=== PATIENT | female | born 1955 | race Caucasian/White ===

== ENCOUNTER → 2017-05-25 | Outpatient (CLI) | payer OTHER ==
[2017-05-25 11:47] LABS: ALBUMIN 3.7 GM/DL (3.2-5.2); ALBUMIN/GLOBULIN RATIO 1.03 (1.00-1.93); ALKALINE PHOSPHATASE 120 U/L (45-117); ALT/SGPT 28 U/L (12-78); ANION GAP 4 MEQ/L (8-16); AST/SGOT 21 U/L (15-37); BILIRUBIN,TOTAL 0.3 MG/DL (0.2-1.0); BLOOD UREA NITROGEN 20 MG/DL (7-18); CARBON DIOXIDE LEVEL 28 MEQ/L (21-32); CHLORIDE LEVEL 113 MEQ/L (98-107); CREATININE FOR GFR 0.68 MG/DL (0.55-1.02); GLOMERULAR FILTRATION RATE > 60.0 (>45); GLUCOSE, FASTING 92 MG/DL (80-110); POTASSIUM SERUM 4.3 MEQ/L (3.5-5.1); SODIUM LEVEL 145 MEQ/L (136-145); TOTAL PROTEIN 7.3 GM/DL (6.4-8.2)
--- NOTE | 2017-05-26 01:21 | REP ---
Clinical: Follow-up thyroid nodule. Comparison: 05/29/2016. Technique: Real time demarco scale and color evaluation using linear high frequency transducer. Findings: Right thyroid lobe measures 4.8 x 2.0 x 2.1 cm with stable nodule in the mid to lower pole measuring 15 x 11 x 11 mm (previously measuring 13 x 12 x 12 mm). A new smaller nonspecific nodule in the mid pole measures 3 x 3 x 2 mm and a new mid pole cyst measures 2 x 2 x 2 mm. Left lobe measures 4.7 x 1.2 x 1.1 mm with a lower pole nodule measuring 7 x 6 x 5 mm (previously measuring 12 x 8 x 8 mm). Second lower pole nodule on prior examination not visualized on current examination. Impression: Few bilateral nodules as described above are nonspecific. Signed by Jagdish Head MD 05/26/2017 01:13 A
== END ==
LOC: M RAD 09:02
PROVIDERS: ATTEND Internal Medicine Endocrinology, Diabetes & Metabolism
DX: M81.0 Age-related osteoporosis without current pathological fracture (principal); Z78.0 Asymptomatic menopausal state

== ENCOUNTER → 2017-09-08 | Outpatient (CLI) | payer OTHER ==
--- NOTE | 2017-09-08 17:27 | REP ---
STERNUM: Two views of the sternum are performed. There is no evidence of acute fracture, dislocation or instrinsic bone disease. IMPRESSION: No evidence of acute fracture or dislocation. Signed by Chuy Frias MD 09/09/2017 04:39 P
--- NOTE | 2017-09-08 17:37 | REP ---
Bilateral rib series: Nine views including PA chest. History: Evaluate fracture. Sternal injury with pain. Findings: PA chest radiograph shows no evidence of pneumothorax or hydrothorax. Mediastinum is not widened. Heart is not enlarged. The lung loco are clear. Multiple views of the right and left ribs are presented. These show no evidence of rib fracture or bony destructive lesion. There is a small benign enchondroma in the right humeral head, which is unchanged from [address] study. Impression: Bilateral rib views show no evidence of rib fracture or bony destructive lesion. Signed by Ky Anderson MD 09/08/2017 05:49 P
== END ==
LOC: M WUC 15:30
PROVIDERS: ATTEND Nurse Practitioner Family
DX: R07.81 Pleurodynia (principal)

== ENCOUNTER → 2018-03-15 | Outpatient (REF) | payer OTHER | LOC: M SFHCCAPE 13:58 | DX: J02.9 Acute pharyngitis, unspecified (principal) ==

== ENCOUNTER → 2018-06-10 | Outpatient (CLI) | payer OTHER ==
[2018-06-10 10:25] LABS: ALBUMIN 3.8 GM/DL (3.2-5.2); ALKALINE PHOSPHATASE 136 U/L (45-117); ALT/SGPT 42 U/L (12-78); ANION GAP 5 MEQ/L (8-16); AST/SGOT 29 U/L (7-37); BILIRUBIN,TOTAL 0.3 MG/DL (0.2-1.0); BLOOD UREA NITROGEN 24 MG/DL (7-18); CALCIUM LEVEL 9.9 MG/DL (8.8-10.2); CARBON DIOXIDE LEVEL 30 MEQ/L (21-32); CHLORIDE LEVEL 109 MEQ/L (98-107); CREATININE FOR GFR 0.96 MG/DL (0.55-1.30); GLOMERULAR FILTRATION RATE > 60.0 (>45); GLUCOSE, FASTING 105 MG/DL (70-100); POTASSIUM SERUM 4.7 MEQ/L (3.5-5.1); SODIUM LEVEL 144 MEQ/L (136-145); TOTAL PROTEIN 7.6 GM/DL (6.4-8.2)
[2018-06-10 11:27] LABS: PTH INTACT 91.2 PG/ML (18.5-88.0)
[2018-06-10 12:38] LABS: TOTAL 25(OH) VITAMIN D 25.5 NG/ML (30.0-100.0)
== END ==
LOC: M RAD 09:14
DX: E04.1 Nontoxic single thyroid nodule (principal); E21.3 Hyperparathyroidism, unspecified
CPT/HCPCS: 76536

== ENCOUNTER 2019-02-16 08:42 | Day surgery (SDC) | payer MEDICARE, OTHER ==
[~2019-02-16] VITALS: Ht 170.2 cm; Wt 82.6 kg
[~2019-02-16 08:42] MED LIST: ASPI81TA26 PO; CALC600T31 PO; FEXO180T58 PO; IBUP200C25 PO; MULT1TAB10 PO; OCUVTAB4 PO; OMEP40CA2 PO; OYST500T12 PO; VITA200015 PO; VITA400C7 PO; VITA500C24 PO
[2019-02-16] MEDS: NS 1,000 ML IV ONE (09:25)
[2019-02-16] MEDS ORDERED: fentaNYL 100 MCG/2 ML INJECTION (J3010) As Ordered ONE (09:58)
[2019-02-16] MEDS ORDERED: PROPOFOL 200 MG/20 ML VIAL As Ordered ONE ×2 (10:01→10:04)
[2019-02-16] MEDS ORDERED: LIDOCAINE 2% INJ 100 MG/5 ML SDV (FOR ANES.) As Ordered ONE (10:01)
--- NOTE | 2019-02-16 10:13 | ROOR ---
Patient Name: Chinyere Giordano Procedure Date: 02/16/2019 9:48 AM Date of : 1955 Age: 63 Room: [facility] Gender: Female Note Status: Finalized Procedure: Upper Endoscopy + Biopsies + Balloon Dilatation. Indications: Dysphagia Providers: Deshaun Campbell MD Referring MD: KADY SERVIN JR, MD Requesting Provider: Medicines: Monitored Anesthesia Care Complications: No immediate complications. Procedure: Pre-Anesthesia Assessment: - The heart rate, respiratory rate, oxygen saturations, blood pressure, adequacy of pulmonary ventilation, and response to care were monitored throughout the procedure. The Endoscope was introduced through the mouth, and advanced to the second part of duodenum. The upper GI endoscopy was accomplished without difficulty. The patient tolerated the procedure well. Findings: The Z-line was regular and was found 40 cm from the incisors. A small hiatal hernia was present. A non-obstructing Schatzki ring was found at the gastroesophageal junction. A TTS dilator was passed through the scope. Dilation with an 18-19-20 mm balloon dilator was performed to 20 mm. The dilation site was examined and showed no change. Localized mild inflammation characterized by congestion (edema) and erosions was found in the gastric antrum. Biopsies were taken with a cold forceps for Helicobacter pylori testing. The exam of the duodenum was otherwise normal. Impression: - Z-line regular, 40 cm from the incisors. - Small hiatal hernia. - Non-obstructing Schatzki ring. Dilated. - Mucosal changes suspicious for gastritis. Biopsied. - The examination was otherwise normal. Recommendation: - Patient has a contact number available for emergencies. The signs and symptoms of potential delayed complications were discussed with the patient. Return to normal activities tomorrow. Written discharge instructions were provided to the patient. - High fiber diet. - Discharge patient to home. - Follow an antireflux regimen. - Continue present medications. - Await pathology results. - Telephone GI clinic for pathology results in 1 week. - Return to referring physician. - The findings and recommendations were discussed with the patient's family. Deshaun Campbell MD Deshaun Campbell MD 02/16/2019 10:12:39 AM Electronically signed by Deshaun Campbell MD Number of Addenda: 0 Note Initiated On: 02/16/2019 9:48 AM Estimated Blood Loss: Estimated blood loss: none.
[2019-02-16 10:40] VITALS: BP 137/83
== END 2019-02-16 10:53 | disposition home or self-care (01) ==
LOC: M OPP 08:42
PROVIDERS: ATTEND Internal Medicine Gastroenterology
DX: K22.2 Esophageal obstruction (principal); K44.9 Diaphragmatic hernia without obstruction or gangrene; K29.60 Other gastritis without bleeding; R13.10 Dysphagia, unspecified
CPT/HCPCS: 43239; 43249; 88305; J3010

== ENCOUNTER → 2019-09-13 | Outpatient (CLI) | payer MEDICARE, OTHER ==
[~2019-09-13] MED LIST changes: -OMEP40CA2 PO; +OMEP40CA97 PO
--- NOTE | 2019-09-14 11:13 | REP ---
COOKIE SWALLOW The procedure was performed under the direct supervision of Dr. Frias. The procedure was performed with Yoli Alvarado from speech pathology present. 5 ml aliquots of thin, pudding and mixed fruit consistency barium was administered. There is no evidence of penetration or aspiration. The patient does, however, have a Zenker's diverticulum. The detailed report of this examination will be provided by speech pathology. 0.4 minutes of fluoroscopy time was utilized for this procedure. Electronically Signed by NELLIE Mckeon 09/13/2019 05:23 P Electronically Signed by Chuy Frias MD 09/14/2019 11:04 A
== END ==
LOC: M ST 14:07
PROVIDERS: ATTEND Internal Medicine Gastroenterology
DX: R13.12 Dysphagia, oropharyngeal phase (principal); K22.5 Diverticulum of esophagus, acquired

== ENCOUNTER → 2019-12-12 | Outpatient (REF) | payer MEDICARE, OTHER ==
[2019-12-12 12:26] LABS: BLOOD UREA NITROGEN 21 MG/DL (7-18); CREATININE FOR GFR 0.82 MG/DL (0.55-1.30); GLOMERULAR FILTRATION RATE > 60.0 (>45)
== END ==
LOC: M LABDRAW1 10:27
PROVIDERS: ATTEND Otolaryngology
DX: R13.10 Dysphagia, unspecified (principal)

== ENCOUNTER → 2019-12-15 | Outpatient (CLI) | payer MEDICARE, OTHER ==
[~2019-12-15] MED LIST changes: +E-Z-GAS II EFFERVESCENT PACKET (SODIUM BICARB./CITRIC ACID/SIMETHICONE) As Ordered ONE; +E-Z-HD 98% w/w 340GM SUSP BTL As Ordered ONE; +E-Z-PAQUE 96% w/w SUSP 176GM BTL As Ordered ONE; +ISOVUE-370 76% 100ML VIAL (Q9967) As Ordered ONE
--- NOTE | 2019-12-15 13:21 | REP ---
Examination Requested: Esophagram Barium Swallow Reason For Exam/Comment: Dysphasia Esophagram: The procedure was performed NELLIE López, under the direct supervision of Dr. Tyler. The images were reviewed with Dr. Tyler. A single PA chest x-ray is submitted as a teamcenter consultant film. The superior mediastinal structures are midline. The heart size is within normal limits. The lungs are clear. Liquid barium and gas producing granules were given in the erect position as well as liquid barium in the prone oblique position, in order to perform a double contrast esophagram examination. Oral and pharyngeal stages of the examination were unremarkable. There is a Zenker's diverticulum noted descending posteriorly and slightly to the right measuring approximately a 1.0 x 1.5 cm. Esophageal transport is efficient and there is no esophagitis, stricture, or mucosal ring noted. There is a small hiatal hernia noted. Gastroesophageal reflux was visualized to the level of the tc. Impression: 1. Zenker's diverticulum descending posteriorly and slightly to the right and measuring approximately 1.0 x 1.5 cm. 2. Small hiatal hernia. 3. Gastroesophageal reflux to the level of the tc. 0.4 minutes of fluoroscopy time was utilized for this procedure. Some fluoroscopic images are performed with last image hold technology. These images require no additional radiation. Reviewed by NELLIE Castro 12/15/2019 12:14 P Electronically Signed by Chuy Tyler MD 12/15/2019 01:13 P
--- NOTE | 2019-12-16 08:40 | REPVR ---
PROCEDURE INFORMATION: Exam: CT Neck With Contrast Exam date and time: 12/15/2019 9:45 AM Age: 64 years old Clinical indication: Throat pain; Additional info: Dysphagiaxr1, ct2 TECHNIQUE: Imaging protocol: Computed tomography images of the neck with intravenous contrast. Radiation optimization: All CT scans at this facility use at least one of these dose optimization techniques: automated exposure control; mA and/or kV adjustment per patient size (includes targeted exams where dose is matched to clinical indication); or iterative reconstruction. Contrast material: ISOVUE 370; Contrast volume: 75 ml; Contrast route: IV; COMPARISON: Thyroid, ST head+neck US 06/06/2019 9:39 AM FINDINGS: Sinuses: Mild mucosal thickening in the maxillary sinuses. Visualized paranasal sinuses are well aerated otherwise. Nasopharynx: Unremarkable. Oropharynx: Unremarkable. No significant tonsillar enlargement. No abscess. Hypopharynx: Unremarkable Larynx: Unremarkable. Normal epiglottis. Retropharyngeal space: Unremarkable. Submandibular/Parotid glands: Normal. Glands are normal in size. Thyroid: Exophytic heterogeneous nodule off the lower pole of the left thyroid lobe measuring 1.6 cm. Lymph nodes: Unremarkable. No lymphadenopathy. Trachea: Visualized trachea is unremarkable. Lungs: Unremarkable as visualized. Mastoid air cells: Effusion in the mastoid air cells bilaterally. No mastoid coalescence. Bones/joints: Mild degenerative spine. No acute fracture. Soft tissues: Unremarkable. No significant soft tissue swelling. No abscess. IMPRESSION: 1. No CT findings to suggest source of dysphagia. 2. Exophytic nodule off the lower pole of the left thyroid. Recommend routine follow-up thyroid ultrasound. 3. Mild maxillary sinus disease. 4. Incidental mastoiditis. COMMENT: Consistent with the [employer]'s Incidental Findings Committee white paper (J Am Estrada Radiol 2015): In patients aged 35 years and older with an incidental thyroid nodule equal to or greater than 1.[address], MRI or extrathyroidal US, further evaluation with dedicated thyroid US is recommended for patients with normal life expectancy and without comorbidities. For smaller nodules without suspicious features, no further evaluation or follow up is recommended. Electronically signed by: Jean-Paul Cherry On 12/16/2019 08:39:43 AM
== END ==
LOC: M RAD 09:23
PROVIDERS: ATTEND Otolaryngology
DX: R13.10 Dysphagia, unspecified (principal); K44.9 Diaphragmatic hernia without obstruction or gangrene; K22.5 Diverticulum of esophagus, acquired; K21.9 Gastro-esophageal reflux disease without esophagitis
CPT/HCPCS: 70491; 74220; Q9967

== ENCOUNTER → 2020-04-23 | Outpatient (CLI) | payer MEDICARE, OTHER ==
[~2020-04-23] MED LIST changes: -E-Z-GAS II EFFERVESCENT PACKET (SODIUM BICARB./CITRIC ACID/SIMETHICONE) As Ordered ONE; -E-Z-HD 98% w/w 340GM SUSP BTL As Ordered ONE; -E-Z-PAQUE 96% w/w SUSP 176GM BTL As Ordered ONE; -ISOVUE-370 76% 100ML VIAL (Q9967) As Ordered ONE
[2020-04-23 11:14] LABS: PLATELET COUNT, AUTOMATED 200 10^3/uL (150-450)
[2020-04-23 11:21] LABS: INR 0.99; PROTHROMBIN TIME 12.8 SECONDS (11.8-14.0)
[2020-04-23 11:22] LABS: PARTIAL THROMBOPLASTIN TIME 31.1 SECONDS (25.0-38.4)
[2020-04-23 11:29] LABS: BLOOD UREA NITROGEN 30 MG/DL (7-18); C REACTIVE PROTEIN QUANTITATIV < 0.30 MG/DL (0.00-0.30); CREATININE FOR GFR 0.71 MG/DL (0.55-1.30); GLOMERULAR FILTRATION RATE > 60.0 (>45)
[2020-04-23 11:33] LABS: ERYTHROCYTE SEDIMENTATION RATE 1 mm/hr (0-30)
== END ==
LOC: M LAB 10:27
PROVIDERS: ATTEND Physical Medicine & Rehabilitation
DX: Z01.812 Encounter for preprocedural laboratory examination (principal); M51.37 Other intervertebral disc degeneration, lumbosacral region

== ENCOUNTER → 2020-05-01 | Outpatient (CLI) | payer MEDICARE, OTHER | LOC: M LABSMTC 12:27 | PROVIDERS: ATTEND Physical Medicine & Rehabilitation | DX: Z03.818 Encounter for observation for suspected exposure to other biological agents ruled out (principal); Z11.59 Encounter for screening for other viral diseases ==

== ENCOUNTER → 2021-06-14 | Outpatient (CLI) | payer MEDICARE, OTHER ==
[~2021-06-14] MED LIST changes: +OMEP40CA4 PO; -OMEP40CA97 PO
--- NOTE | 2021-06-14 10:25 | REP ---
INDICATION: THYROID NODULE. COMPARISON: Multiple TECHNIQUE: Bilateral thyroid ultrasound as on the prior exam FINDINGS: Right lobe of the thyroid gland measures 4.1 x 1.8 x 1.3 cm and the left lobe measures 3.7 x 1.2 x 1.2 cm. The isthmus measures 3.6 mm. In the inferior pole the right lobe there is a 1.4 x 1.1 x 1.9 cm sized complex nodule with some echogenic foci consistent with calcific deposition. This previously measured 1.5 x 1.1 x 1 cm and is essentially unchanged. The 3 mm size cyst seen previously in the upper lobe region is unchanged. The 7 mm sized solid nodule seen previously in the inferior aspect of the left lobe today measures 1.1 cm. IMPRESSION: Nodules as described above. <Electronically signed by Miki Ramos > 06/14/21 [id number]
[2021-06-14 10:38] LABS: HEMOGLOBIN A1c 5.7 %
[2021-06-14 10:45] LABS: ALBUMIN 3.8 GM/DL (3.2-5.2); ALT/SGPT 27 U/L (12-78); BILIRUBIN,TOTAL 0.3 MG/DL (0.2-1.0); BLOOD UREA NITROGEN 19 MG/DL (7-18); CALCIUM LEVEL 9.4 MG/DL (8.8-10.2); CARBON DIOXIDE LEVEL 29 MEQ/L (21-32); CHLORIDE LEVEL 111 MEQ/L (98-107); CREATININE FOR GFR 0.76 MG/DL (0.55-1.30); GLOMERULAR FILTRATION RATE > 60.0 (>45); GLUCOSE, FASTING 89 MG/DL (70-100); POTASSIUM SERUM 4.7 MEQ/L (3.5-5.1); SODIUM LEVEL 141 MEQ/L (136-145); THYROID STIMULATING HORMONE 0.915 uIU/ML (0.358-3.740)
[2021-06-14 10:46] LABS: PTH INTACT 194.2 PG/ML (18.5-88.0); TOTAL 25(OH) VITAMIN D 35.4 NG/ML (30.0-100.0)
== END ==
LOC: M RAD 09:14
PROVIDERS: ATTEND Internal Medicine Endocrinology, Diabetes & Metabolism
DX: E21.3 Hyperparathyroidism, unspecified (principal); E04.1 Nontoxic single thyroid nodule

== ENCOUNTER → 2021-07-30 | Outpatient (REF) | payer MEDICARE, OTHER | LOC: M LAB REF 17:01 | PROVIDERS: ATTEND Internal Medicine | DX: E78.00 Pure hypercholesterolemia, unspecified (principal) ==

== ENCOUNTER → 2022-06-19 | Outpatient (CLI) | payer MEDICARE, OTHER ==
[~2022-06-19] MED LIST changes: +FEXO-117 PO; -FEXO180T58 PO
[2022-06-19 09:54] LABS: ALBUMIN 3.8 GM/DL (3.2-5.2); ALT/SGPT 36 U/L (12-78); BILIRUBIN,TOTAL 0.6 MG/DL (0.2-1.0); BLOOD UREA NITROGEN 18 MG/DL (7-18); CARBON DIOXIDE LEVEL 29 MEQ/L (21-32); CHLORIDE LEVEL 108 MEQ/L (98-107); CREATININE FOR GFR 0.92 MG/DL (0.55-1.30); GLOMERULAR FILTRATION RATE > 60.0 (>45); GLUCOSE, FASTING 94 MG/DL (70-100); POTASSIUM SERUM 4.2 MEQ/L (3.5-5.1); SODIUM LEVEL 140 MEQ/L (136-145); THYROID STIMULATING HORMONE 0.841 uIU/ML (0.358-3.740); TOTAL PROTEIN 7.4 GM/DL (6.4-8.2)
[2022-06-19 10:16] LABS: HEMOGLOBIN A1c 5.9 %
[2022-06-19 10:25] LABS: PTH INTACT 169.7 PG/ML (18.5-88.0); TOTAL 25(OH) VITAMIN D 40.1 NG/ML (30.0-100.0)
== END ==
LOC: M LAB 08:45
PROVIDERS: ATTEND Internal Medicine Endocrinology, Diabetes & Metabolism
DX: E21.3 Hyperparathyroidism, unspecified (principal); Z13.1 Encounter for screening for diabetes mellitus; E04.1 Nontoxic single thyroid nodule

== ENCOUNTER → 2022-06-20 | Outpatient (CLI) | payer MEDICARE, OTHER | LOC: M RAD 07:47 | PROVIDERS: ATTEND Internal Medicine Endocrinology, Diabetes & Metabolism | DX: E04.1 Nontoxic single thyroid nodule (principal) ==

== ENCOUNTER → 2022-11-25 | Outpatient (CLI) | payer MEDICARE, OTHER ==
[~2022-11-25] MED LIST changes: +E-Z-GAS II EFFERVESCENT PACKET (SODIUM BICARB./CITRIC ACID/SIMETHICONE) As Ordered ONE; +E-Z-HD 98% w/w 340GM SUSP BTL As Ordered ONE; +E-Z-PAQUE 96% w/w SUSP 176GM BTL As Ordered ONE
== END ==
LOC: M RAD 09:02
PROVIDERS: ATTEND Otolaryngology
DX: K22.5 Diverticulum of esophagus, acquired (principal)

== ENCOUNTER → 2023-02-10 | Outpatient (REF) | payer MEDICARE, OTHER ==
[~2023-02-10] MED LIST changes: -E-Z-GAS II EFFERVESCENT PACKET (SODIUM BICARB./CITRIC ACID/SIMETHICONE) As Ordered ONE; -E-Z-HD 98% w/w 340GM SUSP BTL As Ordered ONE; -E-Z-PAQUE 96% w/w SUSP 176GM BTL As Ordered ONE
== END ==
LOC: M LAB REF 12:51
PROVIDERS: ATTEND Internal Medicine
DX: E21.0 Primary hyperparathyroidism (principal)

== ENCOUNTER → 2023-06-18 | Outpatient (CLI) | payer MEDICARE, OTHER ==
[2023-06-18 13:43] LABS: ALKALINE PHOSPHATASE 83 U/L (46-116); ALT/SGPT 24 U/L (7.0-40); AST/SGOT 19 U/L (<34); BILIRUBIN,TOTAL 0.7 MG/DL (0.3-1.2); BLOOD UREA NITROGEN 30 MG/DL (9-23); CALCIUM LEVEL 9.9 MG/DL (8.3-10.6); CARBON DIOXIDE LEVEL 26 MMOL/L (20-31); CHLORIDE LEVEL 108 MMOL/L (98-107); CREATININE FOR GFR 0.68 MG/DL (0.55-1.30); GLOMERULAR FILTRATION RATE > 60.0 (>45); GLUCOSE, FASTING 95 MG/DL (74-106); POTASSIUM SERUM 4.4 MMOL/L (3.5-5.1); SODIUM LEVEL 142 MMOL/L (136-145); TOTAL PROTEIN 7.1 G/DL (5.7-8.2)
[2023-06-18 13:44] LABS: PTH INTACT 223.5 PG/ML (18.5-88.0)
[2023-06-18 13:45] LABS: THYROID STIMULATING HORMONE 1.161 uIU/ML (0.55-4.78); TOTAL 25(OH) VITAMIN D 34.5 NG/ML (20.0-100.0)
== END ==
LOC: M LAB 11:41
PROVIDERS: ATTEND Internal Medicine Endocrinology, Diabetes & Metabolism
DX: Z13.1 Encounter for screening for diabetes mellitus (principal); E21.3 Hyperparathyroidism, unspecified; E04.1 Nontoxic single thyroid nodule; Z79.899 Other long term (current) drug therapy

== ENCOUNTER → 2023-06-18 | Outpatient (CLI) | payer MEDICARE, OTHER | LOC: M RAD 11:35 | PROVIDERS: ATTEND Internal Medicine Endocrinology, Diabetes & Metabolism | DX: E04.1 Nontoxic single thyroid nodule (principal) ==

== ENCOUNTER → 2023-10-23 | Outpatient (CLI) | payer MEDICARE, OTHER ==
[~2023-10-23] MED LIST changes: +E-Z-GAS II EFFERVESCENT PACKET (SODIUM BICARB./CITRIC ACID/SIMETHICONE) As Ordered ONE; +E-Z-HD 98% w/w 340GM SUSP BTL As Ordered ONE; +E-Z-PAQUE 96% w/w SUSP 176GM BTL As Ordered ONE
== END ==
LOC: M RAD 09:12
PROVIDERS: ATTEND Otolaryngology
DX: K22.5 Diverticulum of esophagus, acquired (principal); K44.9 Diaphragmatic hernia without obstruction or gangrene; K21.9 Gastro-esophageal reflux disease without esophagitis

== ENCOUNTER → 2023-10-30 | Outpatient (CLI) | payer MEDICARE, OTHER ==
[~2023-10-30] MED LIST changes: -E-Z-GAS II EFFERVESCENT PACKET (SODIUM BICARB./CITRIC ACID/SIMETHICONE) As Ordered ONE; -E-Z-HD 98% w/w 340GM SUSP BTL As Ordered ONE; -E-Z-PAQUE 96% w/w SUSP 176GM BTL As Ordered ONE
[2023-10-30 13:25] LABS: BLOOD UREA NITROGEN 27 MG/DL (9-23); CALCIUM LEVEL 9.7 MG/DL (8.3-10.6); CARBON DIOXIDE LEVEL 27 MMOL/L (20-31); CHLORIDE LEVEL 109 MMOL/L (98-107); CREATININE FOR GFR 0.61 MG/DL (0.55-1.30); GLOMERULAR FILTRATION RATE > 60.0 (>39); GLUCOSE, FASTING 99 MG/DL (74-106); POTASSIUM SERUM 3.8 MMOL/L (3.5-5.1); SODIUM LEVEL 143 MMOL/L (136-145)
== END ==
LOC: M LAB 12:22
PROVIDERS: ATTEND Surgery
DX: Z01.818 Encounter for other preprocedural examination (principal); E21.0 Primary hyperparathyroidism

== ENCOUNTER → 2023-12-15 | Outpatient (CLI) | payer MEDICARE, OTHER | LOC: M WUC 10:24 | PROVIDERS: ATTEND Nurse Practitioner Family | DX: S69.92XA Unspecified injury of left wrist, hand and finger(s), initial encounter (principal); M85.842 Other specified disorders of bone density and structure, left hand; M79.89 Other specified soft tissue disorders; X58.XXXA Exposure to other specified factors, initial encounter; Y92.9 Unspecified place or not applicable; Y93.9 Activity, unspecified; Y99.9 Unspecified external cause status ==

== ENCOUNTER → 2024-02-16 | Outpatient (CLI) | payer MEDICARE, OTHER ==
[2024-02-16 12:05] LABS: BLOOD UREA NITROGEN 26 MG/DL (9-23); CALCIUM LEVEL 10.6 MG/DL (8.3-10.6); CARBON DIOXIDE LEVEL 30 MMOL/L (20-31); CHLORIDE LEVEL 106 MMOL/L (98-107); GLOMERULAR FILTRATION RATE > 60.0 (>39); GLUCOSE, FASTING 90 MG/DL (74-106); POTASSIUM SERUM 3.5 MMOL/L (3.5-5.1); SODIUM LEVEL 139 MMOL/L (136-145)
== END ==
LOC: M LAB 11:08
PROVIDERS: ATTEND Surgery
DX: E21.0 Primary hyperparathyroidism (principal)

== ENCOUNTER → 2024-03-21 | Outpatient (REF) | payer MEDICARE, OTHER | LOC: M LAB REF 16:03 | PROVIDERS: ATTEND Internal Medicine | DX: E21.0 Primary hyperparathyroidism (principal) ==

== ENCOUNTER → 2024-06-23 | Outpatient (CLI) | payer MEDICARE, OTHER ==
[2024-06-23 12:14] LABS: HEMOGLOBIN A1c 5.8 % (4.0-6.0)
[2024-06-23 12:16] LABS: ALBUMIN 3.9 G/DL (3.2-5.2); ALKALINE PHOSPHATASE 85 U/L (46-116); ALT/SGPT 30 U/L (7.0-40); AST/SGOT 22 U/L (<34); BILIRUBIN,TOTAL 0.8 MG/DL (0.3-1.2); BLOOD UREA NITROGEN 30 MG/DL (9-23); CALCIUM LEVEL 8.8 MG/DL (8.3-10.6); CARBON DIOXIDE LEVEL 26 MMOL/L (20-31); CHLORIDE LEVEL 107 MMOL/L (98-107); GLOMERULAR FILTRATION RATE > 60.0 (>39); GLUCOSE, FASTING 95 MG/DL (74-106); POTASSIUM SERUM 3.7 MMOL/L (3.5-5.1); PTH INTACT 64.5 PG/ML (18.5-88.0); SODIUM LEVEL 139 MMOL/L (136-145); TOTAL PROTEIN 6.9 G/DL (5.7-8.2)
[2024-06-23 12:18] LABS: TOTAL 25(OH) VITAMIN D 50.5 NG/ML (20.0-100.0)
== END ==
LOC: M RAD 10:52
PROVIDERS: ATTEND Internal Medicine Endocrinology, Diabetes & Metabolism
DX: E21.3 Hyperparathyroidism, unspecified (principal); Z13.1 Encounter for screening for diabetes mellitus; E04.1 Nontoxic single thyroid nodule

== ENCOUNTER → 2025-06-13 | Outpatient (CLI) | payer MEDICARE, OTHER ==
[~2025-06-13] MED LIST changes: -FEXO-117 PO; +FEXO-193 PO
[2025-06-13 16:00] LABS: ESTIMATED AVERAGE GLUCOSE 126.0 MG/DL (60-110)
[2025-06-13 16:04] LABS: ALT/SGPT 32.0 U/L (7.0-40); AST/SGOT 28.0 U/L (<34); CALCIUM LEVEL 9.5 MG/DL (8.3-10.6); CARBON DIOXIDE LEVEL 30.0 MMOL/L (20-31); CHLORIDE LEVEL 103.0 MMOL/L (98-107); CREATININE FOR GFR 0.81 MG/DL (0.55-1.30); GLOMERULAR FILTRATION RATE 77.6 (>39); POTASSIUM SERUM 3.7 MMOL/L (3.5-5.1); PTH INTACT 29.5 PG/ML (18.5-88.0); SODIUM LEVEL 141.0 MMOL/L (136-145)
[2025-06-13 16:06] LABS: TOTAL 25(OH) VITAMIN D 49.8 NG/ML (20.0-100.0)
== END ==
LOC: M RAD 14:35
PROVIDERS: ATTEND Internal Medicine Endocrinology, Diabetes & Metabolism
DX: E04.1 Nontoxic single thyroid nodule (principal); E21.3 Hyperparathyroidism, unspecified; Z13.1 Encounter for screening for diabetes mellitus